=== PATIENT | female | born 1980 | race Caucasian/White ===

== ENCOUNTER 2020-07-26 11:33 | Day surgery (SDC) | payer OTHER ==
[~2020-07-26] VITALS: Ht 157.5 cm; Wt 89.8 kg
[~2020-07-26 11:33] MED LIST: ACET-2065 PO; DIPH50CA62 PO; MULT-449 PO; NORG1TAB6 PO; biotin PO
[2020-07-26 11:51] VITALS: BP 150/95
[2020-07-26 11:59] LABS: HCG UR SG 1.019 (1.003-1.030)
[2020-07-26] MEDS ORDERED: CHLORHEXIDINE 15 ML UDC PO ONE (12:00)
[2020-07-26] MEDS ORDERED: LACTATED RINGERS 1,000 ML IV SCH (12:30)
[2020-07-26] MEDS ORDERED: MIDAZOLAM 1 MG/ML, 2ML ONE (12:51)
[2020-07-26] MEDS ORDERED: FENTANYL PF 100 MCG/2ML ONE (12:52)
[2020-07-26] MEDS ORDERED: hydrALAzine 20 MG/ML, 1ML IV PRN (13:00)
[2020-07-26] MEDS ORDERED: OXYcodone 5 MG/5 ML ORAL.SOL UDC PO PRN (13:00)
[2020-07-26] MEDS ORDERED: HALOPERIDOL 5 MG/ML IV PRN (13:00)
[2020-07-26] MEDS ORDERED: MEPERIDINE/PF 25MG/0.5ML IVPush PRN (13:00)
[2020-07-26] MEDS ORDERED: FENTANYL PF 100 MCG/2ML IV PRN (13:00)
[2020-07-26] MEDS ORDERED: HYDROmorphone 1 MG/ML, 1ML INJ IVPush PRN (13:00)
[2020-07-26] MEDS ORDERED: LABETALOL 5MG/ML, 20ML IV PRN (13:00)
[2020-07-26] MEDS ORDERED: DIPHENHYDRAMINE 50 MG/ML, 1ML IVPush PRN (13:00)
[2020-07-26] MEDS ORDERED: PROMETHAZINE 25 MG/ML, 1ML IVPush PRN (13:00)
[2020-07-26] MEDS ORDERED: CEFAZOLIN 1,000 MG ONE (13:22)
[2020-07-26] MEDS ORDERED: PROPOFOL 10 MG/ML, 20ML ONE (13:22)
[2020-07-26] MEDS ORDERED: ONDANSETRON 2MG/ML, 2ML ONE (13:22)
[2020-07-26] MEDS ORDERED: DEXAMETHASONE 4 MG/ML, 1ML ONE (13:22)
== END 2020-07-26 14:50 | disposition home or self-care (01) ==
LOC: OUT 11:33
PROVIDERS: ATTEND Urology
DX: N13.2 Hydronephrosis with renal and ureteral calculous obstruction (principal); Z20.822 Contact with and (suspected) exposure to COVID-19; Z79.1 Long term (current) use of non-steroidal anti-inflammatories (NSAID); Z79.899 Other long term (current) drug therapy; Z88.2 Allergy status to sulfonamides; Z88.8 Allergy status to other drugs, medicaments and biological substances
CPT/HCPCS: 52356; 74018; 81025; 93005; C1769; C2617; J0690; J1100; J2250; J2405; J2704; J3010; J7120; U0003; U0005; 76000